=== PATIENT | male | born 1970 | race African-American/Black ===

== ENCOUNTER 2017-07-11 11:07 | Emergency (ER) | payer OTHER, BC ==
[~2017-07-11] VITALS: Ht 165.1 cm; Wt 62.5 kg
[~2017-07-11 11:07] MED LIST: FLEXERIL10 MG PO; NOHOMEMEDS
[2017-07-11 11:13] VITALS: BP 143/94
[2017-07-11] MEDS ORDERED: MOTRIN800 MG PO (14:39)
[2017-07-11] MEDS ORDERED: FLEXERIL10 MG PO (14:39)
[2017-07-11] MEDS ORDERED: LORTAB 5-325 M1 EACH PO (14:39)
== END 2017-07-11 15:08 | disposition home or self-care (01) ==
LOC: EME 11:07
DX: S16.1XXA Strain of muscle, fascia and tendon at neck level, initial encounter (principal); S46.912A Strain of unspecified muscle, fascia and tendon at shoulder and upper arm level, left arm, initial encounter; V43.52XA Car driver injured in collision with other type car in traffic accident, initial encounter; Y92.411 Interstate highway as the place of occurrence of the external cause; F17.200 Nicotine dependence, unspecified, uncomplicated; Z71.6 Tobacco abuse counseling
CPT/HCPCS: 99281; 99283; J1885